=== PATIENT | female | born 1985 | race Caucasian/White ===

== ENCOUNTER 2020-04-22 16:18 | Emergency (ER) | payer OTHER ==
[2020-04-22 16:31] VITALS: RESP 18
[2020-04-22] MEDS ORDERED: ONDANSETRON 4 MG/2 ML VIAL IVP STA (17:02)
[2020-04-22] MEDS ORDERED: CEPHALEXIN 500MG STARTER PACK 4 CAP BTL PO STA (17:02)
[2020-04-22] MEDS ORDERED: SODIUM CHLORIDE 0.9% 1,000 ML IV STA (17:02)
[2020-04-22] MEDS ORDERED: MORPHINE SULFATE 4 MG/ML SYRINGE IV STA (17:02)
[2020-04-22] MEDS ORDERED: FAMOTIDINE 20 MG/2 ML VIAL IV STA (17:02)
[2020-04-22 17:44] LABS: Basophils # (A) 0.1 k/uL (0-0.2); Basophils % (A) 1 %; Eosinophils # (A) 0.2 k/uL (0-0.7); Eosinophils % (A) 2 %; HCT 41.5 % (34.0-46.0); HGB 13.7 gm/dL (11.4-16.0); Lymphocytes # (A) 2.6 k/uL (1.0-4.8); Lymphocytes % (A) 25 %; MCH 28.3 pg (25.0-35.0); MCHC 32.9 g/dL (31.0-37.0); MCV 85.9 fL (80.0-100.0); Mean Platelet Volume 6.7; Monocytes # (A) 0.4 k/uL (0-1.0); Monocytes % (A) 4 %; Neutrophils # (A) 6.9 k/uL (1.3-7.7); Neutrophils % (A) 67 %; Platelet Count 258 k/uL (150-450); RBC 4.84 m/uL (3.80-5.40); RDW 13.6 % (11.5-15.5); WBC 10.3 k/uL (3.8-10.6)
[2020-04-22 17:53] LABS: Appearance,Urine Clear (Clear); Bilirubin,Urine Negative (Negative); Blood,Urine Negative (Negative); Color,Urine Yellow; Glucose,Urine (UA) Negative (Negative); Ketones,Urine Negative (Negative); Leukocyte Esterase,Urine Negative (Negative); Nitrite,Urine Negative (Negative); Protein,Urine Negative (Negative); Specific Gravity,Urine 1.014 (1.001-1.035); Urobilinogen,Urine <2.0 mg/dL (<2.0)
[2020-04-22 17:54] LABS: ALT 33 U/L (4-34); AST 32 U/L (14-36); African American GFR (CKD) >90 (>60 ml/min/1.73 sqM); Albumin 4.5 g/dL (3.5-5.0); Alkaline Phosphatase 69 U/L (38-126); Anion Gap 8 mmol/L; Blood Urea Nitrogen 12 mg/dL (7-17); Calcium 9.7 mg/dL (8.4-10.2); Carbon Dioxide 25 mmol/L (22-30); Chloride 103 mmol/L (98-107); Glucose 81 mg/dL (74-99); Lipase 76 U/L (23-300); Non-African American GFR(CKD) >90 (>60 ml/min/1.73 sqM); Potassium 4.4 mmol/L (3.5-5.1); Sodium 136 mmol/L (137-145); Total Bilirubin 0.4 mg/dL (0.2-1.3); Total Protein 7.7 g/dL (6.3-8.2)
--- NOTE | 2020-04-22 18:02 | ED ---
General Adult HPI - General Chief complaint: Skin/Abscess/Foreign Body Stated complaint: allergic reaction/tattoo ink Time Seen by Provider: 04/22/20 16:30 Source: patient Mode of arrival: ambulatory Limitations: no limitations - History of Present Illness Initial comments: 34-year-old female patient presents to the emergency department today for evaluation of midepigastric pain radiating through to her back. She is also reporting a redness and pain to her left lower leg at the site of a new tattoo. Patient states that she started to have pain to the leg a few days ago. States it has been red and swollen. She states she was taking norco 7.5/325 without relief of pain. States she then started to take ibuprofen. States that after taking the ibuprofen she started to have epigastric pain and was concerned she may have pancreatitis which she has had in the past. She reports occasional nausea without vomiting. States she is able to eat and drink. She denies any shortness of breath or sweats. Patient denies any recent rash, cough, diarrhea, constipation, numbness, tingling, dizziness, weakness, hematuria, dysuria, urinary urgency, urinary frequency, headache, visual changes, or any other complaints. - Related Data Previous Rx's Medication Instructions Recorded Cephalexin [Keflex] 500 mg PO Q6HR #40 cap 04/22/20 Allergies Allergy/AdvReac Type Severity Reaction Status Date / Time Penicillins Allergy Unknown Verified 04/22/20 16:24 Childhood Sulfa (Sulfonamide Allergy Unknown Verified 04/22/20 16:24 Antibiotics) Childhood Review of Systems ROS Statement: Those systems with pertinent positive or pertinent negative responses have been documented in the HPI. ROS Other: All systems not noted in ROS Statement are negative. Past Medical History Past Medical History: Asthma History of Any Multi-Drug Resistant Organisms: None Reported Past Surgical History: Section Past Psychological History: Anxiety, Schizoaffective Disorder Smoking Status: Current every day smoker Past Alcohol Use History: None Reported Past Drug Use History: Marijuana General Exam Limitations: no limitations General appearance: alert, in no apparent distress, other (This is a well- developed, well-nourished adult female patient in no acute distress. Vital signs upon presentation are temperature 98.6F, pulse 110, respirations 18, blood pressure 172/94, pulse ox 100% on room air) Eye exam: Present: normal appearance, PERRL, EOMI. Absent: scleral icterus, conjunctival injection, periorbital swelling ENT exam: Present: normal exam, normal oropharynx, mucous membranes moist Respiratory exam: Present: normal lung sounds bilaterally. Absent: respiratory distress, wheezes, rales, rhonchi, stridor Cardiovascular Exam: Present: regular rate, normal rhythm, normal heart sounds. Absent: systolic murmur, diastolic murmur, rubs, gallop, clicks GI/Abdominal exam: Present: soft, normal bowel sounds. Absent: distended, tenderness, guarding, rebound, rigid, pulsatile mass Extremities exam: Present: normal inspection, full ROM, normal capillary refill, other (Skin to the lower extremities is pink, warm, dry. Cap refills less than 3 seconds. Pedal pulses 2+ and equal bilaterally. There is new tattoo noted to the left medial ankle with surrounding erythema and swelling.). Absent: tenderness, pedal edema, joint swelling, calf tenderness Neurological exam: Present: alert, oriented X3, CN II-XII intact Psychiatric exam: Present: normal affect, normal mood Skin exam: Present: warm, dry, intact, normal color. Absent: rash Course Vital Signs 04/22/20 04/22/20 16:25 18:50 Temperature 98.6 F 98.4 F Pulse Rate 110 H 85 Respiratory 18 18 Rate Blood Pressure 172/94 121/72 O2 Sat by Pulse 100 98 Oximetry EKG Findings - EKG Comments: EKG Findings:: EKG obtained at 1725 shows normal sinus rhythm with a ventricular rate is 77, LA interval 134, QRS duration 88, QT 398, QTC 450. No evidence of ST elevation or depression. Medical Decision Making - Medical Decision Making 34 year old female patient presents to the emergency department today for evaluation of infection to a new tattoo as well as midepigastric abdominal pain radiating through to the back. Physical examination did reveal soft nontender abdomen. There is no pulsatile mass upon palpation. She has good neurovascular status of the lower extremities. Evaluation of the tattooed area does appear to be cellulitis. Labs reviewed and are unremarkable. I did discuss findings and results with her. She is instructed to avoid Motrin if this causes her abdominal pain. She is instructed to follow-up with her primary care physician for recheck in 1-2 days. She is instructed to complete antibiotic prescription and full. Return parameters discussed in detail. She verbalizes understanding and agrees with this plan. - Lab Data Result diagrams: 04/22/20 17:10 04/22/20 17:10 Lab Results 04/22/20 04/22/20 04/22/20 Range/Units 17:10 17:10 17:10 WBC 10.3 (3.8-10.6) k/uL RBC 4.84 (3.80-5.40) m/uL Hgb 13.7 (11.4-16.0) gm/dL Hct 41.5 (34.0-46.0) % MCV 85.9 (80.0-100.0) fL MCH 28.3 (25.0-35.0) pg MCHC 32.9 (31.0-37.0) g/dL RDW 13.6 (11.5-15.5) % Plt Count 258 (150-450) k/uL MPV 6.7 Neutrophils % 67 % Lymphocytes % 25 % Monocytes % 4 % Eosinophils % 2 % Basophils % 1 % Neutrophils # 6.9 (1.3-7.7) k/uL Lymphocytes # 2.6 (1.0-4.8) k/uL Monocytes # 0.4 (0-1.0) k/uL Eosinophils # 0.2 (0-0.7) k/uL Basophils # 0.1 (0-0.2) k/uL Sodium 136 L (137-145) mmol/L Potassium 4.4 (3.5-5.1) mmol/L Chloride 103 (98-107) mmol/L Carbon Dioxide 25 (22-30) mmol/L Anion Gap 8 mmol/L BUN 12 (7-17) mg/dL Creatinine 0.76 (0.52-1.04) mg/dL Est GFR (CKD-EPI)AfAm >90 (>60 ml/min/1.73 sqM) Est GFR (CKD-EPI)NonAf >90 (>60 ml/min/1.73 sqM) Glucose 81 (74-99) mg/dL Calcium 9.7 (8.4-10.2) mg/dL Total Bilirubin 0.4 (0.2-1.3) mg/dL AST 32 (14-36) U/L ALT 33 (4-34) U/L Alkaline Phosphatase 69 (38-126) U/L Troponin I (0.000-0.034) ng/mL Total Protein 7.7 (6.3-8.2) g/dL Albumin 4.5 (3.5-5.0) g/dL Lipase 76 (23-300) U/L Urine Color Yellow Urine Appearance Clear (Clear) Urine pH 6.0 (5.0-8.0) Ur Specific [place] 1.014 (1.001-1.035) Urine Protein Negative (Negative) Urine Glucose (UA) Negative (Negative) Urine Ketones Negative (Negative) Urine Blood Negative (Negative) Urine Nitrite Negative (Negative) Urine Bilirubin Negative (Negative) Urine Urobilinogen <2.0 (<2.0) mg/dL Ur Leukocyte Esterase Negative (Negative) 04/22/20 Range/Units 17:10 WBC (3.8-10.6) k/uL RBC (3.80-5.40) m/uL Hgb (11.4-16.0) gm/dL Hct (34.0-46.0) % MCV (80.0-100.0) fL MCH (25.0-35.0) pg MCHC (31.0-37.0) g/dL RDW (11.5-15.5) % Plt Count (150-450) k/uL MPV Neutrophils % % Lymphocytes % % Monocytes % % Eosinophils % % Basophils % % Neutrophils # (1.3-7.7) k/uL Lymphocytes # (1.0-4.8) k/uL Monocytes # (0-1.0) k/uL Eosinophils # (0-0.7) k/uL Basophils # (0-0.2) k/uL Sodium (137-145) mmol/L Potassium (3.5-5.1) mmol/L Chloride (98-107) mmol/L Carbon Dioxide (22-30) mmol/L Anion Gap mmol/L BUN (7-17) mg/dL Creatinine (0.52-1.04) mg/dL Est GFR (CKD-EPI)AfAm (>60 ml/min/1.73 sqM) Est GFR (CKD-EPI)NonAf (>60 ml/min/1.73 sqM) Glucose (74-99) mg/dL Calcium (8.4-10.2) mg/dL Total Bilirubin (0.2-1.3) mg/dL AST (14-36) U/L ALT (4-34) U/L Alkaline Phosphatase (38-126) U/L Troponin I <0.012 (0.000-0.034) ng/mL Total Protein (6.3-8.2) g/dL Albumin (3.5-5.0) g/dL Lipase (23-300) U/L Urine Color Urine Appearance (Clear) Urine pH (5.0-8.0) Ur Specific [place] (1.001-1.035) Urine Protein (Negative) Urine Glucose (UA) (Negative) Urine Ketones (Negative) Urine Blood (Negative) Urine Nitrite (Negative) Urine Bilirubin (Negative) Urine Urobilinogen (<2.0) mg/dL Ur Leukocyte Esterase (Negative) Disposition Clinical Impression: Cellulitis of left leg, Abdominal pain Disposition: HOME SELF-CARE Condition: Good Instructions (If sedation given, give patient instructions): Cellulitis (ED), Abdominal Pain (ED) Additional Instructions: Take medications as directed. Follow-up through primary care physician for recheck in 1-2 days. Return to the emergency department immediately for any new, worsening, or concerning symptoms. Prescriptions: Cephalexin [Keflex] 500 mg PO Q6HR #40 cap Is patient prescribed a controlled substance at d/c from ED?: No Referrals: Jamaal Beasley MD [Primary Care Provider] - 1-2 days Time of Disposition: 18:30
[2020-04-22] MEDS ORDERED: ACET/COD 300 MG/30 MG STARTER PACK 6 TAB BTL PO STA (18:30)
[2020-04-22 18:53] VITALS: BP 121/72; PULSE 85; TEMP 98.4
== END 2020-04-22 18:54 | disposition home or self-care (01) ==
LOC: EC 16:18
DX: R10.13 Epigastric pain (principal); L03.116 Cellulitis of left lower limb; F17.200 Nicotine dependence, unspecified, uncomplicated; Z88.0 Allergy status to penicillin; Z88.2 Allergy status to sulfonamides
CPT/HCPCS: 36415; 93005; 80053; 83690; 84484; 85025; 81003; 99283; 96374; 96375 ×2; 96361; J2270; J2405

== ENCOUNTER 2020-04-24 23:12 | Observation (INO) | payer OTHER ==
[2020-04-24] MEDS ORDERED: cefTRIAXone IN SWFI 1,000 MG/10 ML SYRINGE IVP STA (23:32)
[2020-04-24] MEDS ORDERED: VANCOMYCIN IV PER PHARMACY 1 EACH MISC MISCELLANE PRN (23:32)
[2020-04-24] MEDS ORDERED: SODIUM CHLORIDE 0.9% 1,000 ML IV ONE (23:44)
[2020-04-24] MEDS: SODIUM CHLORIDE 0.9% 1,000 ML IV SCH (23:58)
[2020-04-25] MEDS ORDERED: MORPHINE SULFATE 4 MG/ML SYRINGE IV STA
[2020-04-25] MEDS ORDERED: VANCOMYCIN 2,000 MG in SODIUM CHLORIDE 0.9% 500 ML 500 ML IVPB ONE ×2
[2020-04-25] MEDS ORDERED: ONDANSETRON 4 MG/2 ML VIAL IVP STA (00:14)
[2020-04-25 00:22] LABS: Basophils # (A) 0.1 k/uL (0-0.2); Basophils % (A) 1 %; Eosinophils # (A) 0.6 k/uL (0-0.7); Eosinophils % (A) 6 %; HCT 39.2 % (34.0-46.0); HGB 13.2 gm/dL (11.4-16.0); Lymphocytes # (A) 3.4 k/uL (1.0-4.8); Lymphocytes % (A) 35 %; MCH 28.6 pg (25.0-35.0); MCHC 33.7 g/dL (31.0-37.0); MCV 85.1 fL (80.0-100.0); Mean Platelet Volume 6.8; Monocytes # (A) 0.4 k/uL (0-1.0); Monocytes % (A) 4 %; Neutrophils # (A) 5.1 k/uL (1.3-7.7); Neutrophils % (A) 53 %; Platelet Count 249 k/uL (150-450); RBC 4.61 m/uL (3.80-5.40); RDW 13.7 % (11.5-15.5); WBC 9.7 k/uL (3.8-10.6)
[2020-04-25 00:26] LABS: Appearance,Urine Clear (Clear); Bilirubin,Urine Negative (Negative); Blood,Urine Negative (Negative); Color,Urine Yellow; Glucose,Urine (UA) Negative (Negative); Ketones,Urine Negative (Negative); Leukocyte Esterase,Urine Negative (Negative); Nitrite,Urine Negative (Negative); Protein,Urine Negative (Negative); Specific Gravity,Urine 1.014 (1.001-1.035); Urobilinogen,Urine <2.0 mg/dL (<2.0)
--- NOTE | 2020-04-25 00:26 | XR ---
EXAM: XR Left Tibia and Fibula, 2 Views CLINICAL HISTORY: ITS.REASON XR Reason: infection left lower extremity TECHNIQUE: Frontal and lateral views of the left tibia and fibula. COMPARISON: No relevant prior studies available. FINDINGS: Bones/joints: No acute fracture. No dislocation. Soft tissues: No gas/air. No radiopaque foreign body. IMPRESSION: No acute osseous abnormalities.
[2020-04-25 00:42] LABS: ALT 27 U/L (4-34); AST 23 U/L (14-36); African American GFR (CKD) >90 (>60 ml/min/1.73 sqM); Albumin 4.1 g/dL (3.5-5.0); Alkaline Phosphatase 56 U/L (38-126); Anion Gap 6 mmol/L; Blood Urea Nitrogen 15 mg/dL (7-17); Calcium 9.3 mg/dL (8.4-10.2); Carbon Dioxide 26 mmol/L (22-30); Chloride 104 mmol/L (98-107); Glucose 108 mg/dL (74-99); Non-African American GFR(CKD) 84 (>60 ml/min/1.73 sqM); Potassium 4.5 mmol/L (3.5-5.1); Sodium 136 mmol/L (137-145); Total Bilirubin 0.2 mg/dL (0.2-1.3); Total Protein 7.2 g/dL (6.3-8.2)
[2020-04-25] MEDS ORDERED: ACETAMINOPHEN TAB 325 MG TAB PO PRN (01:07)
[2020-04-25] MEDS ORDERED: IBUPROFEN 400 MG TAB PO PRN (01:07)
[2020-04-25] MEDS ORDERED: NALOXONE 0.4 MG/ML 1 ML VIAL IV PRN (01:07)
--- NOTE | 2020-04-25 01:09 | ED ---
General Adult HPI - General Chief complaint: Skin/Abscess/Foreign Body Stated complaint: left lower leg pain Time Seen by Provider: 04/24/20 23:19 Source: patient, RN notes reviewed, old records reviewed Mode of arrival: ambulatory Limitations: no limitations - History of Present Illness Initial comments: 34-year-old female patient to ED for evaluation of exudates to left lateral ankle. Patient port that she had the tattoo done about 10 days ago. It is a coverup tattoo. Patient reports that for the last 5 days or soshe has been having pain. She reports that she began developing redness about 3 days ago. She was seen in the emergency department put on Keflex 500 mg 4 times a day she is taken 2 full days worth of doses. Today her pain again got worse and then she began experiencing a significant amount of purulent drainage. She denies any other complaints. Systemic: Pt denies fatigue. Pt denies weakness, night sweats, weight loss. Neuro: Pt denies headache, visual disturbances, syncope or pre-syncope. HEENT: Pt denies ocular discharge or irritation, otalgia, rhinorrhea, pharyngitis or notable lymphadenopathy. Cardiopulmonary: Pt denies chest pain, SOB, heart palpitations, dyspnea on exertion. Abdominal/GI: Pt denies abdominal pain, n/v/d. : Pt denies dysuria, burning w/ urination, frequency/urgency. Denies new onset urinary or bowel incontinence. MSK: Pt denies myalgia, loss of strength or function in extremities. Neuro: Pt denies new onset weakness, paresthesias. - Related Data Previous Rx's Medication Instructions Recorded Cephalexin [Keflex] 500 mg PO Q6HR #40 cap 04/22/20 Allergies Allergy/AdvReac Type Severity Reaction Status Date / Time Penicillins Allergy Unknown Verified 04/24/20 23:18 Childhood Sulfa (Sulfonamide Allergy Unknown Verified 04/24/20 23:18 Antibiotics) Childhood Review of Systems ROS Statement: Those systems with pertinent positive or pertinent negative responses have been documented in the HPI. ROS Other: All systems not noted in ROS Statement are negative. Past Medical History Past Medical History: Asthma History of Any Multi-Drug Resistant Organisms: None Reported Past Surgical History: Section Past Psychological History: Anxiety, Schizoaffective Disorder Smoking Status: Current every day smoker Past Alcohol Use History: None Reported Past Drug Use History: Marijuana General Exam - General Exam Comments Initial Comments: Constitutional: NAD, AOX3, Pt has pleasant affect. HEENT: NC/AT, trachea midline, neck supple, no lymphadenopathy. External ears appear normal, without discharge. Mucous membranes moist. Eyes PERRLA, EOM intact. There is no scleral icterus. No pallor noted. Cardiopulmonary: RRR, no murmurs, rubs or gallops, no JVD noted. Lungs CTAB in anterior and posterior henning. No peripheral edema. Abdominal exam: Abdomen soft and non-distended. Abdomen non-tender to palpation in all 4 quadrants. Neuro: CN II-XII grossly intact. No nuchal rigidity. MSK: *Tattoo on the left lateral ankle approximately 3 x 3". Surrounding erythema. Purulent drainage noted in the center of the*. This was cultured. No current fluctuance. No crepitus. No posterior calf tenderness bilaterally, homans sign negative bilaterally. Posterior tibialis and radial pulse +2 bilaterally. Sensation intact in upper and lower extremities. Limitations: no limitations Course Vital Signs 04/24/20 23:14 Temperature 100.0 F H Pulse Rate 101 H Respiratory 20 Rate Blood Pressure 142/82 O2 Sat by Pulse 96 Oximetry Medical Decision Making - Medical Decision Making 34-year-old female patient to ED for infected tattoo site. Patient has failed outpatient treatment. Will be admitted for IV antibiotics. Case discussed with Dr. [place]. - Lab Data Result diagrams: 04/24/20 23:59 04/24/20 23:59 Lab Results 04/24/20 04/24/20 04/24/20 Range/Units 23:59 23:59 23:59 WBC 9.7 (3.8-10.6) k/uL RBC 4.61 (3.80-5.40) m/uL Hgb 13.2 (11.4-16.0) gm/dL Hct 39.2 (34.0-46.0) % MCV 85.1 (80.0-100.0) fL MCH 28.6 (25.0-35.0) pg MCHC 33.7 (31.0-37.0) g/dL RDW 13.7 (11.5-15.5) % Plt Count 249 (150-450) k/uL MPV 6.8 Neutrophils % 53 % Lymphocytes % 35 % Monocytes % 4 % Eosinophils % 6 % Basophils % 1 % Neutrophils # 5.1 (1.3-7.7) k/uL Lymphocytes # 3.4 (1.0-4.8) k/uL Monocytes # 0.4 (0-1.0) k/uL Eosinophils # 0.6 (0-0.7) k/uL Basophils # 0.1 (0-0.2) k/uL Sodium (137-145) mmol/L Potassium (3.5-5.1) mmol/L Chloride (98-107) mmol/L Carbon Dioxide (22-30) mmol/L Anion Gap mmol/L BUN (7-17) mg/dL Creatinine (0.52-1.04) mg/dL Est GFR (CKD-EPI)AfAm (>60 ml/min/1.73 sqM) Est GFR (CKD-EPI)NonAf (>60 ml/min/1.73 sqM) Glucose (74-99) mg/dL Plasma Lactic Acid [place] (0.7-2.0) mmol/L Calcium (8.4-10.2) mg/dL Total Bilirubin (0.2-1.3) mg/dL AST (14-36) U/L ALT (4-34) U/L Alkaline Phosphatase (38-126) U/L Total Protein (6.3-8.2) g/dL Albumin (3.5-5.0) g/dL Urine Color Yellow Urine Appearance Clear (Clear) Urine pH 6.0 (5.0-8.0) Ur Specific [place] 1.014 (1.001-1.035) Urine Protein Negative (Negative) Urine Glucose (UA) Negative (Negative) Urine Ketones Negative (Negative) Urine Blood Negative (Negative) Urine Nitrite Negative (Negative) Urine Bilirubin Negative (Negative) Urine Urobilinogen <2.0 (<2.0) mg/dL Ur Leukocyte Esterase Negative (Negative) Urine HCG, Qual Not Detected (Not Detectd) 04/24/20 04/24/20 Range/Units 23:59 23:59 WBC (3.8-10.6) k/uL RBC (3.80-5.40) m/uL Hgb (11.4-16.0) gm/dL Hct (34.0-46.0) % MCV (80.0-100.0) fL MCH (25.0-35.0) pg MCHC (31.0-37.0) g/dL RDW (11.5-15.5) % Plt Count (150-450) k/uL MPV Neutrophils % % Lymphocytes % % Monocytes % % Eosinophils % % Basophils % % Neutrophils # (1.3-7.7) k/uL Lymphocytes # (1.0-4.8) k/uL Monocytes # (0-1.0) k/uL Eosinophils # (0-0.7) k/uL Basophils # (0-0.2) k/uL Sodium 136 L (137-145) mmol/L Potassium 4.5 (3.5-5.1) mmol/L Chloride 104 (98-107) mmol/L Carbon Dioxide 26 (22-30) mmol/L Anion Gap 6 mmol/L BUN 15 (7-17) mg/dL Creatinine 0.90 (0.52-1.04) mg/dL Est GFR (CKD-EPI)AfAm >90 (>60 ml/min/1.73 sqM) Est GFR (CKD-EPI)NonAf 84 (>60 ml/min/1.73 sqM) Glucose 108 H (74-99) mg/dL Plasma Lactic Acid [place]y 1.6 (0.7-2.0) mmol/L Calcium 9.3 (8.4-10.2) mg/dL Total Bilirubin 0.2 (0.2-1.3) mg/dL AST 23 (14-36) U/L ALT 27 (4-34) U/L Alkaline Phosphatase 56 (38-126) U/L Total Protein 7.2 (6.3-8.2) g/dL Albumin 4.1 (3.5-5.0) g/dL Urine Color Urine Appearance (Clear) Urine pH (5.0-8.0) Ur Specific [place] (1.001-1.035) Urine Protein (Negative) Urine Glucose (UA) (Negative) Urine Ketones (Negative) Urine Blood (Negative) Urine Nitrite (Negative) Urine Bilirubin (Negative) Urine Urobilinogen (<2.0) mg/dL Ur Leukocyte Esterase (Negative) Urine HCG, Qual (Not Detectd) Disposition Clinical Impression: Skin infection, Cellulitis Disposition: ADMITTED IP TO THIS HOSP Condition: Serious Is patient prescribed a controlled substance at d/c from ED?: No Referrals: Jamaal Beasley MD [Primary Care Provider] - 1-2 days
[2020-04-25] MEDS: SODIUM CHLORIDE 0.9% 1,000 ML IV SCH ×3 (09:39→22:08)
[2020-04-25] MEDS: VANCOMYCIN 1,750 MG in SODIUM CHLORIDE 0.9% 500 ML 500 ML IVPB SCH (11:28)
[2020-04-25] MEDS: HYDROcodone/APAP 7.5-325MG 1 EACH TAB PO PRN ×3 (11:35→22:09)
[2020-04-25] MEDS: ONDANSETRON 4 MG/2 ML VIAL IVP PRN (13:20)
[2020-04-25] MEDS: ALPRAZolam 0.25 MG TAB PO PRN (13:25)
[2020-04-26] MEDS: ONDANSETRON 4 MG/2 ML VIAL IVP PRN (00:30)
[2020-04-26] MEDS: VANCOMYCIN 1,750 MG in SODIUM CHLORIDE 0.9% 500 ML 500 ML IVPB SCH ×2 (00:30→12:23)
[2020-04-26] MEDS: ALPRAZolam 0.25 MG TAB PO PRN ×2 (00:44→21:24)
[2020-04-26] MEDS: HYDROcodone/APAP 7.5-325MG 1 EACH TAB PO PRN ×3 (06:08→18:22)
[2020-04-26] MEDS: SODIUM CHLORIDE 0.9% 1,000 ML IV SCH ×2 (06:09→21:17)
[2020-04-26 10:47] LABS: African American GFR (CKD) >90 (>60 ml/min/1.73 sqM); Non-African American GFR(CKD) >90 (>60 ml/min/1.73 sqM)
--- NOTE | 2020-04-26 19:44 | P.HPIM ---
History of Present Illness H&P Date: 04/25/20 Chief Complaint: Skin abscess/left leg pain 34-year-old female patient to ED for evaluation of exudates to left lateral ankle. Patient port that she had the tattoo done about 10 days ago. It is a coverup tattoo. Patient reports that for the last 5 days or soshe has been having pain. She reports that she began developing redness about 3 days ago. She was seen in the emergency department put on Keflex 500 mg 4 times a day she is taken 2 full days worth of doses. Today her pain again got worse and then she began experiencing a significant amount of purulent drainage. She denies any other complaints. Review of Systems REVIEW OF SYSTEMS: CONSTITUTIONAL: No fever, no malaise, no fatigue. HEENT: No recent visual problems or hearing problems. Denied any sore throat. CARDIOVASCULAR: No chest pain, orthopnea, PND, no palpitations, no syncope. PULMONARY: No shortness of breath, no cough, no hemoptysis. GASTROINTESTINAL: No diarrhea, no nausea, no vomiting, no abdominal pain. NEUROLOGICAL: No headaches, no weakness, no numbness. HEMATOLOGICAL: Denies any bleeding or petechiae. GENITOURINARY: Denies any burning micturition, frequency, or urgency. MUSCULOSKELETAL/RHEUMATOLOGICAL: Denies any joint pain, swelling, or any muscle pain. ENDOCRINE: Denies any polyuria or polydipsia. The rest of the 14-point review of systems is negative. Past Medical History Past Medical History: Asthma History of Any Multi-Drug Resistant Organisms: None Reported Past Surgical History: Section Additional Past Surgical History / Comment(s): pancreatitis Past Anesthesia/Blood Transfusion Reactions: No Reported Reaction Past Psychological History: Anxiety, Schizoaffective Disorder Smoking Status: Current every day smoker Past Alcohol Use History: None Reported Past Drug Use History: Marijuana Medications and Allergies Home Medications Medication Instructions Recorded Confirmed Type Cephalexin [Keflex] 500 mg PO Q6HR #40 cap 04/22/20 04/25/20 Rx ALPRAZolam [Xanax] 0.25 mg PO BID PRN 04/25/20 04/25/20 History FLUoxetine HCL 40 mg PO DAILY 04/25/20 04/25/20 History HYDROcodone/APAP 7.5-325MG [[place] 1 tab PO QID PRN 04/25/20 04/25/20 History 7.5-325] Ibuprofen [Motrin Ib] 200 mg PO Q6H PRN 04/25/20 04/25/20 History Norgestimate-Ethinyl Estradiol 1 tab PO HS 04/25/20 04/25/20 History [Sprintec 28 Day Tablet] Allergies Allergy/AdvReac Type Severity Reaction Status Date / Time Penicillins Allergy Unknown Verified 04/25/20 07:30 Childhood Sulfa (Sulfonamide Allergy Unknown Verified 04/25/20 07:30 Antibiotics) Childhood Physical Exam Vitals: Vital Signs Temp Pulse Pulse Resp BP BP Pulse Ox 04/25/20 09:00 97.1 F L 92 18 148/76 04/25/20 03:00 98.1 F 75 16 140/71 98 04/25/20 02:00 98.0 F 71 16 130/78 95 04/24/20 23:14 100.0 F H 101 H 20 142/82 96 Intake and Output 04/24/20 04/25/20 04/25/20 22:59 06:59 14:59 Other: Voiding Method Toilet Toilet # Voids 1 Weight 122.47 kg Constitutional: NAD, AOX3, Pt has pleasant affect. HEENT: NC/AT, trachea midline, neck supple, no lymphadenopathy. External ears appear normal, without discharge. Mucous membranes moist. Eyes PERRLA, EOM intact. There is no scleral icterus. No pallor noted. Cardiopulmonary: RRR, no murmurs, rubs or gallops, no JVD noted. Lungs CTAB in anterior and posterior henning. No peripheral edema. Abdominal exam: Abdomen soft and non-distended. Abdomen non-tender to palpation in all 4 quadrants. Neuro: CN II-XII grossly intact. No nuchal rigidity. MSK: *Tattoo on the left lateral ankle approximately 3 x 3". Surrounding erythema. Purulent drainage noted in the center of the*. This was cultured. No current fluctuance. No crepitus. No posterior calf tenderness bilaterally, homans sign negative bilaterally. Posterior tibialis and radial pulse +2 bilaterally. Sensation intact in upper and lower extremities. Results CBC & Chem 7: 04/24/20 23:59 04/26/20 09:53 Labs: Abnormal Lab Results - Last 24 Hours (Table) 04/24/20 Range/Units 23:59 Sodium 136 L (137-145) mmol/L Glucose 108 H (74-99) mg/dL Microbiology - Last 24 Hours (Table) 04/24/20 23:52 Wound Culture - Preliminary Leg - Left Thrombosis Risk Factor Assmnt - Choose All That Apply Each Factor Represents 1 point: Obesity (BMI >25) Thrombosis Risk Factor Assessment Total Risk Factor Score: 1 Thrombosis Risk Factor Assessment Level: Low Risk Assessment and Plan Assessment: 1. Infection/abscess tattoo site; patient is started on IV ceftriaxone and vancomycin in ED; we will continue with both antibiotics; blood cultures and wound culture is obtained; we will consult ID; further recommendations after culture results are available 2. Cellulitis left lower extremity; secondary to infected tattoo site; continue with antibiotics as discussed above; further recommendations per ID 3. Morbid obesity; counseling done on need for weight reduction DVT prophylaxis; SCDs/ambulation CODE STATUS; full code
[2020-04-27] MEDS: VANCOMYCIN 1,750 MG in SODIUM CHLORIDE 0.9% 500 ML 500 ML IVPB SCH ×2 (00:34→11:15)
[2020-04-27] MEDS: HYDROcodone/APAP 7.5-325MG 1 EACH TAB PO PRN ×3 (00:44→14:27)
[2020-04-27 07:33] LABS: African American GFR (CKD) >90 (>60 ml/min/1.73 sqM); Anion Gap 3 mmol/L; Blood Urea Nitrogen 5 mg/dL (7-17); Calcium 8.5 mg/dL (8.4-10.2); Carbon Dioxide 28 mmol/L (22-30); Chloride 106 mmol/L (98-107); Glucose 81 mg/dL (74-99); Non-African American GFR(CKD) >90 (>60 ml/min/1.73 sqM); Potassium 4.1 mmol/L (3.5-5.1); Sodium 137 mmol/L (137-145)
[2020-04-27 07:58] LABS: Basophils # (A) 0.1 k/uL (0-0.2); Basophils % (A) 1 %; Eosinophils # (A) 0.4 k/uL (0-0.7); Eosinophils % (A) 5 %; HCT 35.3 % (34.0-46.0); HGB 11.6 gm/dL (11.4-16.0); Lymphocytes # (A) 2.2 k/uL (1.0-4.8); Lymphocytes % (A) 27 %; MCH 28.3 pg (25.0-35.0); MCHC 32.7 g/dL (31.0-37.0); MCV 86.7 fL (80.0-100.0); Mean Platelet Volume 7.5; Monocytes # (A) 0.4 k/uL (0-1.0); Monocytes % (A) 5 %; Neutrophils # (A) 4.8 k/uL (1.3-7.7); Neutrophils % (A) 61 %; Platelet Count 192 k/uL (150-450); RBC 4.08 m/uL (3.80-5.40); RDW 13.8 % (11.5-15.5)
[2020-04-27 08:19] VITALS: PULSE 66
[2020-04-27] MEDS ORDERED: VANCOMYCIN TROUGH DUE 1 EACH MISC MISCELLANE ONE (11:00)
--- NOTE | 2020-04-27 17:01 | P.PN ---
Subjective Progress Note Date: 04/26/20 Principal diagnosis: Skin abscess/left leg pain 34-year-old female patient to ED for evaluation of exudates to left lateral ankle. Patient port that she had the tattoo done about 10 days ago. It is a coverup tattoo. Patient reports that for the last 5 days or soshe has been having pain. She reports that she began developing redness about 3 days ago. She was seen in the emergency department put on Keflex 500 mg 4 times a day she is taken 2 full days worth of doses. Today her pain again got worse and then she began experiencing a significant amount of purulent drainage. She denies any other complaints. 04/26/2020 Patient is seen and evaluated in room at bedside; reports improvement in pain and amount of discharge from tattoo site Vital signs remained stable; labs are stable Patient remains on IV antibiotics; wound culture is pending Await ID recommendations on IV antibiotics and possible transition to oral Objective - Vital Signs Vital signs: Vital Signs Temp 97.7 F 04/26/20 15:00 Pulse 60 04/26/20 15:00 Resp 18 04/26/20 15:00 BP 153/63 04/26/20 15:00 Pulse Ox 98 04/26/20 15:00 Intake & Output 04/26/20 04/26/20 04/27/20 06:59 18:59 06:59 Intake Total 1780 Balance 1780 Intake: Intake, IV Titration 1540 Amount Sodium Chloride 0.9% 1, 1040 000 ml @ 130 mls/hr IV . Q7H42M QUYEN Rx#:[id number] Vancomycin 1,750 mg In 500 Sodium Chloride 0.9% 500 ml 500 ml @ 167 mls/hr IVPB Q12H QUYEN Rx#: [id number] Oral 240 Other: Voiding Method Toilet Toilet # Voids 1 4 - Exam PHYSICAL EXAMINATION: GENERAL: The patient is alert and oriented x3, not in any acute distress. Well developed, well nourished. HEENT: Pupils are round and equally reacting to light. EOMI. No scleral icterus. No conjunctival pallor. Normocephalic, atraumatic. No pharyngeal erythema. No thyromegaly. CARDIOVASCULAR: S1 and S2 present. No murmurs, rubs, or gallops. PULMONARY: Chest is clear to auscultation, no wheezing or crackles. ABDOMEN: Soft, nontender, nondistended, normoactive bowel sounds. No palpable organomegaly. MUSCULOSKELETAL: No joint swelling or deformity. EXTREMITIES: No cyanosis, clubbing, or pedal edema. NEUROLOGICAL: Gross neurological examination did not reveal any focal deficits. SKIN: No rashes. - Labs CBC & Chem 7: 04/27/20 06:29 04/27/20 06:29 Labs: Microbiology - Last 24 Hours (Table) 04/24/20 23:52 Gram Stain - Preliminary Leg - Left Wound Culture - Preliminary 04/24/20 23:59 Blood Culture - Preliminary Blood No Growth after 24 hours Assessment and Plan Assessment: 1. Infection/abscess tattoo site; patient is started on IV ceftriaxone and vancomycin in ED; we will continue with both antibiotics; blood cultures and wound culture is obtained; we will consult ID; further recommendations after c ulture results are available 2. Cellulitis left lower extremity; secondary to infected tattoo site; continue with antibiotics as discussed above; further recommendations per ID 3. Morbid obesity; counseling done on need for weight reduction DVT prophylaxis; SCDs/ambulation CODE STATUS; full code
[2020-04-27 18:07] VITALS: BP 125/67; RESP 18; TEMP 98.5
--- NOTE | 2020-04-28 03:47 | CONS ---
CONSULTATION DATE OF SERVICE: 04/27/2020 REASON FOR CONSULTATION: Left leg cellulitis with infected tattoo. HISTORY OF PRESENT ILLNESS: The patient is a 34-year-old female who is status post new tattoo about 2 weeks ago on the left lateral ankle area. The patient mentioned a few days later she noticed the area becoming swollen, red and painful. The patient described the pain to be throbbing almost 10 out of 10 in severity. He did have some purulent drainage. The patient was evaluated in the ER a few days ago where the patient has been started on oral Keflex four times a day for which the patient has taken 2 days worth of treatment. However, the patient did have persistent pain, swelling and redness that prompted her to come to the hospital 3 days ago on 04/24/2020. The patient was evaluated by the ER physician. On arrival to the ER, the patient did have a fever of 100 degrees Fahrenheit. The patient did have a normal white count. Local culture has been obtained which are currently negative. Blood culture was obtained, was negative. X- rays were negative for any bony changes. The patient has been treated with vancomycin and Rocephin. Infectious Disease was consulted last evening for further management of antibiotic therapy. As of this afternoon, the patient is afebrile. She is feeling much better. Left leg pain, swelling and redness and discomfort has much improved. REVIEW OF SYSTEMS: Positive points have been mentioned in HPI. Rest of the systems are negative. PAST MEDICAL HISTORY: Asthma and pancreatitis, also history of anxiety. She has disorder. PAST SURGICAL HISTORY: . SOCIAL HISTORY: Currently a smoker. Does admit to marijuana use. FAMILY HISTORY: No pertinent findings noticed. ALLERGIES: PENICILLIN and SULFA tolerated Keflex without any problem. MEDICATIONS: Medications include the patient is currently on vancomycin, pharmacy to dose. She is on Zofran, Narcan, Motrin, Rocephin, Xanax, [place] and Tylenol. PHYSICAL EXAMINATION: Blood pressure 145/84, pulse of 66, temperature is 97.3. She is 99% on room air. General description is a middle-aged female up in the bed in no distress. HEENT EXAMINATION: No pallor or scleral icterus. Oral mucous membrane moist. NECK: Trachea central. No thyromegaly. LUNGS: Unlabored breathing, clear to auscultation with crackles. HEART: S1, S2. Regular rate and rhythm. ABDOMEN: Soft, no tenderness. Left leg slight swelling and redness seemed to have improved. There was no swelling or redness or drainage noticed. NEUROLOGICAL: The patient is awake, alert, oriented x3. Mood and affect normal. LABS: Hemoglobin 11.6, white count 8.0. Creatinine 0.72. Vancomycin trough was low. Culture negative. Blood culture negative. DIAGNOSTIC IMPRESSION AND PLAN: Patient with acute left lower extremity cellulitis with infected tattoo failing outpatient oral Keflex. However, she did well on vancomycin. Patient's vancomycin trough was low and culture has been negative for resistant pathogen. The patient is feeling better and wants to go home. PLAN: Would recommend doxycycline 100 mg twice a day for 10 days. Prescription has been sent to the pharmacy and close outpatient followup. MICKI / LASHONDA: [id number] /
--- NOTE | 2020-05-12 00:53 | P.DS ---
Providers Date of admission: 04/26/20 14:25 Expected date of discharge: 04/27/20 Attending physician: Meghan Lay Consults: 04/26/20 19:02 Consult Physician Routine Consulting Provider: Clemente Monae Consult Reason/Comments: infected tattoo Do you want consulting provider notified?: Yes Primary care physician: [facility] Hospital Course: 34-year-old female patient to ED for evaluation of exudates to left lateral ankle. Patient port that she had the tattoo done about 10 days ago. It is a coverup tattoo. Patient reports that for the last 5 days or soshe has been having pain. She reports that she began developing redness about 3 days ago. She was seen in the emergency department put on Keflex 500 mg 4 times a day she is taken 2 full days worth of doses. Today her pain again got worse and then she began experiencing a significant amount of purulent drainage. She denies any other complaints. 04/26/2020 Patient is seen and evaluated in room at bedside; reports improvement in pain and amount of discharge from tattoo site Vital signs remained stable; labs are stable Patient remains on IV antibiotics; wound culture is pending Await ID recommendations on IV antibiotics and possible transition to oral Patient Condition at Discharge: Serious Plan - Discharge Summary Discharge Rx Participant: No New Discharge Prescriptions: New Doxycycline [Vibramycin] 100 mg PO BID 10 Days #20 capsule Continue Norgestimate-Ethinyl Estradiol [Sprintec 28 Day Tablet] 1 tab PO HS Ibuprofen [Motrin Ib] 200 mg PO Q6H PRN PRN Reason: Pain HYDROcodone/APAP 7.5-325MG [[place] 7.5-325] 1 tab PO QID PRN PRN Reason: Pain FLUoxetine HCL 40 mg PO DAILY ALPRAZolam [Xanax] 0.25 mg PO BID PRN PRN Reason: Anxiety Discontinued Cephalexin [Keflex] 500 mg PO Q6HR #40 cap Discharge Medication List ALPRAZolam [Xanax] 0.25 mg PO BID PRN 04/25/20 [History] FLUoxetine HCL 40 mg PO DAILY 04/25/20 [History] HYDROcodone/APAP 7.5-325MG [[place] 7.5-325] 1 tab PO QID PRN 04/25/20 [History] Ibuprofen [Motrin Ib] 200 mg PO Q6H PRN 04/25/20 [History] Norgestimate-Ethinyl Estradiol [Sprintec 28 Day Tablet] 1 tab PO HS 04/25/20 [History] Doxycycline [Vibramycin] 100 mg PO BID 10 Days #20 capsule 04/27/20 [Rx] Follow up Appointment(s)/Referral(s): Jamaal Beasley MD [Primary Care Provider] - 1-2 days (please call for follow up ap pointment) Patient Instructions/Handouts: Cellulitis (DC) Discharge Disposition: HOME SELF-CARE
== END 2020-04-27 18:10 | disposition home or self-care (01) ==
LOC: EC 23:12 → 1SOBS 04-25 02:39 → INTOOBSV 04-25 02:39 → OBSVTOIN 04-25 02:39 → 1SOBS 04-25 14:25 → INTOOBSV 04-25 14:25 → UNDOADMIN 04-26 02:39 → OBSVTOIN 04-26 14:25 → INTOOBSV 04-26 14:25 → UNDODISIN 04-27 18:10 → UNDODISOB 04-27 18:10
PROVIDERS: ADMIT Hospitalist; ATTEND Hospitalist
DX: L02.416 Cutaneous abscess of left lower limb (principal); L03.116 Cellulitis of left lower limb; L81.8 Other specified disorders of pigmentation; E66.01 Morbid (severe) obesity due to excess calories; Z68.41 Body mass index [BMI] 40.0-44.9, adult; F25.9 Schizoaffective disorder, unspecified; J45.909 Unspecified asthma, uncomplicated; F41.9 Anxiety disorder, unspecified; F12.90 Cannabis use, unspecified, uncomplicated; F17.200 Nicotine dependence, unspecified, uncomplicated; Z79.3 Long term (current) use of hormonal contraceptives; Z79.1 Long term (current) use of non-steroidal anti-inflammatories (NSAID); Z79.891 Long term (current) use of opiate analgesic; Z79.899 Other long term (current) drug therapy; Z88.0 Allergy status to penicillin; Z88.2 Allergy status to sulfonamides; Z87.19 Personal history of other diseases of the digestive system; Z98.891 History of uterine scar from previous surgery
CPT/HCPCS: 96361 ×2; 96366 ×4; 96367; 96376 ×3; 96365; 96375; 99285; 36415; 80053; 80048; 82565; 83605; 85025 ×2; 80202; 81003; 81025; 87040; 87070; 87205; 84145; 73590; G0378 ×3; J3370 ×3; J2270; J2405 ×2; J0696 ×2

== ENCOUNTER 2021-06-21 14:46 | Emergency (ER) | payer OTHER ==
[2021-06-21 14:52] VITALS: TEMP 97.9
[2021-06-21 15:08] VITALS: RESP 18
[2021-06-21 15:20] LABS: Appearance,Urine Clear (Clear); Bilirubin,Urine Negative (Negative); Blood,Urine Negative (Negative); Color,Urine Light Yellow; Glucose,Urine (UA) Negative (Negative); Ketones,Urine Negative (Negative); Leukocyte Esterase,Urine Negative (Negative); Nitrite,Urine Negative (Negative); Protein,Urine Negative (Negative); Specific Gravity,Urine 1.008 (1.001-1.035); Urobilinogen,Urine <2.0 mg/dL (<2.0)
[2021-06-21] MEDS ORDERED: HYDROmorphone 0.5 MG/0.5 ML SYRINGE IVP STA (15:37)
[2021-06-21] MEDS ORDERED: ONDANSETRON 4 MG/2 ML VIAL IVP STA (15:37)
[2021-06-21] MEDS ORDERED: SODIUM CHLORIDE 0.9% 1,000 ML IV STA (15:37)
--- NOTE | 2021-06-21 15:45 | ED ---
General Adult HPI - General Chief complaint: Abdominal Pain Stated complaint: Abd Pain Time Seen by Provider: 06/21/21 15:16 Source: patient, RN notes reviewed Mode of arrival: ambulatory Limitations: no limitations - History of Present Illness Initial comments: 36-year-old female presents to the emergency Department with complaints of left upper quadrant abdominal pain accompanied by nausea and vomiting that have been ongoing for the past 8-12 months. Patient states she has a history of severe anxiety and agoraphobia therefore rarely leaves her house and has not had these symptoms evaluated. Reports vomiting with most oral intake, though states she is able to tolerate coffee. Complains of constant nausea. Patient states she does have a history of pancreatitis and describes this discomfort as similar in nature. Denies fever, chills, chest pain, difficulty breathing, shortness of breath, constipation, diarrhea, dysuria, or hematuria. - Related Data Home Medications Medication Instructions Recorded Confirmed ALPRAZolam [Xanax] 0.25 mg PO BID PRN 04/25/20 04/25/20 FLUoxetine HCL 40 mg PO DAILY 04/25/20 04/25/20 HYDROcodone/APAP 7.5-325MG [[place] 1 tab PO QID PRN 04/25/20 04/25/20 7.5-325] Ibuprofen [Motrin Ib] 200 mg PO Q6H PRN 04/25/20 04/25/20 Norgestimate-Ethinyl Estradiol 1 tab PO HS 04/25/20 04/25/20 [Sprintec 28 Day Tablet] Previous Rx's Medication Instructions Recorded Doxycycline [Vibramycin] 100 mg PO BID 10 Days #20 capsule 04/27/20 Ondansetron Odt [Zofran Odt] 4 mg PO Q8HR PRN #10 tab 06/21/21 Allergies Allergy/AdvReac Type Severity Reaction Status Date / Time Penicillins Allergy Unknown Verified 06/21/21 14:48 Childhood Sulfa (Sulfonamide Allergy Unknown Verified 06/21/21 14:48 Antibiotics) Childhood Review of Systems ROS Statement: Those systems with pertinent positive or pertinent negative responses have been documented in the HPI. ROS Other: All systems not noted in ROS Statement are negative. Past Medical History Past Medical History: Asthma Additional Past Medical History / Comment(s): pancreatitis, borderline personality disorder. History of Any Multi-Drug Resistant Organisms: None Reported Past Surgical History: Section, Cholecystectomy Additional Past Surgical History / Comment(s): pancreatitis Past Anesthesia/Blood Transfusion Reactions: No Reported Reaction Past Psychological History: Anxiety, PTSD, Schizoaffective Disorder Smoking Status: Current every day smoker Past Alcohol Use History: None Reported Past Drug Use History: Marijuana General Exam Limitations: no limitations (Well-developed, well-nourished female in no acute distress. Patient is very tearful and anxious upon arrival. Initial temperature 97.9, pulse 117, respirations 20, blood pressure 153/84, pulse ox 97% on room air.) General appearance: alert, in no apparent distress, anxious ENT exam: Present: normal exam, normal oropharynx, mucous membranes moist Respiratory exam: Present: normal lung sounds bilaterally. Absent: respiratory distress, wheezes, rales, rhonchi, stridor Cardiovascular Exam: Present: regular rate, normal rhythm, normal heart sounds. Absent: systolic murmur, diastolic murmur, rubs, gallop, clicks GI/Abdominal exam: Present: soft, tenderness (Mild epigastric tenderness upon palpation), guarding (Patient is guarding the entire left side of her abdomen), normal bowel sounds. Absent: distended, rebound, rigid Back exam: Present: normal inspection. Absent: CVA tenderness (R), CVA tenderness (L) Neurological exam: Present: alert, oriented X3 Psychiatric exam: Present: anxious (History of severe anxiety and agoraphobia. Patient is tearful.) Skin exam: Present: warm, dry, intact, normal color Course Vital Signs 06/21/21 06/21/21 06/21/21 14:48 15:07 17:24 Temperature 97.9 F Pulse Rate 117 H 101 H 81 Respiratory 20 18 18 Rate Blood Pressure 153/84 141/79 148/80 O2 Sat by Pulse 97 96 98 Oximetry 06/21/21 06/21/21 18:53 20:51 Temperature Pulse Rate 98 80 Respiratory 18 18 Rate Blood Pressure 148/80 141/80 O2 Sat by Pulse 98 97 Oximetry Medical Decision Making - Medical Decision Making 36-year-old female with a past medical history of severe anxiety, presents to the emergency department for evaluation of abdominal pain that has been going for the last 8-12 months. Upon exam, patient is tearful and anxious. Vital signs are stable. Patient is nontoxic in appearance. Abdomen is soft and nontender upon palpation. She has no additional complaints of ailment. Patient was given pain medication, nausea medicine and IV fluids with improvement. Laboratory studies were obtained and are unremarkable. CT of the abdomen and pelvis was negative for acute finding. Results were discussed with patient. She expresses relief with lack of findings and is agreeable to follow up with her PCP for further evaluation and treatment. Patient is prescribed Zofran for nausea. Return parameters were discussed with patient. She verbalizes understanding and agrees with this plan. This patient's care was discussed with my attending Dr. Aguilera. - Lab Data Result diagrams: 06/21/21 15:46 06/21/21 15:46 Lab Results 06/21/21 06/21/21 06/21/21 Range/Units 14:56 14:56 15:46 WBC 10.2 (3.8-10.6) k/uL RBC 5.30 (3.80-5.40) m/uL Hgb 15.4 (11.4-16.0) gm/dL Hct 46.3 H (34.0-46.0) % MCV 87.2 (80.0-100.0) fL MCH 28.9 (25.0-35.0) pg MCHC 33.2 (31.0-37.0) g/dL RDW 13.5 (11.5-15.5) % Plt Count 229 (150-450) k/uL MPV 7.2 Neutrophils % 56 % Lymphocytes % 29 % Monocytes % 4 % Eosinophils % 9 % Basophils % 1 % Neutrophils # 5.7 (1.3-7.7) k/uL Lymphocytes # 3.0 (1.0-4.8) k/uL Monocytes # 0.4 (0-1.0) k/uL Eosinophils # 0.9 H (0-0.7) k/uL Basophils # 0.1 (0-0.2) k/uL PT (9.0-12.0) sec INR (<1.2) APTT (22.0-30.0) sec Sodium (137-145) mmol/L Potassium (3.5-5.1) mmol/L Chloride (98-107) mmol/L Carbon Dioxide (22-30) mmol/L Anion Gap mmol/L BUN (7-17) mg/dL Creatinine (0.52-1.04) mg/dL Est GFR (CKD-EPI)AfAm (>60 ml/min/1.73 sqM) Est GFR (CKD-EPI)NonAf (>60 ml/min/1.73 sqM) Glucose (74-99) mg/dL Plasma Lactic Acid Edy (0.7-2.0) mmol/L Calcium (8.4-10.2) mg/dL Total Bilirubin (0.2-1.3) mg/dL AST (14-36) U/L ALT (4-34) U/L Alkaline Phosphatase (38-126) U/L Troponin I (0.000-0.034) ng/mL Total Protein (6.3-8.2) g/dL Albumin (3.5-5.0) g/dL Amylase (30-110) U/L Lipase (23-300) U/L Urine Color Light Yellow Urine Appearance Clear (Clear) Urine pH 6.0 (5.0-8.0) Ur Specific [place] 1.008 (1.001-1.035) Urine Protein Negative (Negative) Urine Glucose (UA) Negative (Negative) Urine Ketones Negative (Negative) Urine Blood Negative (Negative) Urine Nitrite Negative (Negative) Urine Bilirubin Negative (Negative) Urine Urobilinogen <2.0 (<2.0) mg/dL Ur Leukocyte Esterase Negative (Negative) Urine HCG, Qual Not Detected (Not Detectd) 06/21/21 06/21/21 06/21/21 Range/Units 15:46 15:46 15:46 WBC (3.8-10.6) k/uL RBC (3.80-5.40) m/uL Hgb (11.4-16.0) gm/dL Hct (34.0-46.0) % MCV (80.0-100.0) fL MCH (25.0-35.0) pg MCHC (31.0-37.0) g/dL RDW (11.5-15.5) % Plt Count (150-450) k/uL MPV Neutrophils % % Lymphocytes % % Monocytes % % Eosinophils % % Basophils % % Neutrophils # (1.3-7.7) k/uL Lymphocytes # (1.0-4.8) k/uL Monocytes # (0-1.0) k/uL Eosinophils # (0-0.7) k/uL Basophils # (0-0.2) k/uL PT 10.1 (9.0-12.0) sec INR 0.9 (<1.2) APTT 23.7 (22.0-30.0) sec Sodium 142 (137-145) mmol/L Potassium 4.0 (3.5-5.1) mmol/L Chloride 106 (98-107) mmol/L Carbon Dioxide 24 (22-30) mmol/L Anion Gap 12 mmol/L BUN 12 (7-17) mg/dL Creatinine 0.71 (0.52-1.04) mg/dL Est GFR (CKD-EPI)AfAm >90 (>60 ml/min/1.73 sqM) Est GFR (CKD-EPI)NonAf >90 (>60 ml/min/1.73 sqM) Glucose 83 (74-99) mg/dL Plasma Lactic Acid Edy 0.8 (0.7-2.0) mmol/L Calcium 10.0 (8.4-10.2) mg/dL Total Bilirubin 0.5 (0.2-1.3) mg/dL AST 24 (14-36) U/L ALT 23 (4-34) U/L Alkaline Phosphatase 68 (38-126) U/L Troponin I (0.000-0.034) ng/mL Total Protein 7.7 (6.3-8.2) g/dL Albumin 4.6 (3.5-5.0) g/dL Amylase 49 (30-110) U/L Lipase 67 (23-300) U/L Urine Color Urine Appearance (Clear) Urine pH (5.0-8.0) Ur Specific [place] (1.001-1.035) Urine Protein (Negative) Urine Glucose (UA) (Negative) Urine Ketones (Negative) Urine Blood (Negative) Urine Nitrite (Negative) Urine Bilirubin (Negative) Urine Urobilinogen (<2.0) mg/dL Ur Leukocyte Esterase (Negative) Urine HCG, Qual (Not Detectd) 06/21/21 Range/Units 15:46 WBC (3.8-10.6) k/uL RBC (3.80-5.40) m/uL Hgb (11.4-16.0) gm/dL Hct (34.0-46.0) % MCV (80.0-100.0) fL MCH (25.0-35.0) pg MCHC (31.0-37.0) g/dL RDW (11.5-15.5) % Plt Count (150-450) k/uL MPV Neutrophils % % Lymphocytes % % Monocytes % % Eosinophils % % Basophils % % Neutrophils # (1.3-7.7) k/uL Lymphocytes # (1.0-4.8) k/uL Monocytes # (0-1.0) k/uL Eosinophils # (0-0.7) k/uL Basophils # (0-0.2) k/uL PT (9.0-12.0) sec INR (<1.2) APTT (22.0-30.0) sec Sodium (137-145) mmol/L Potassium (3.5-5.1) mmol/L Chloride (98-107) mmol/L Carbon Dioxide (22-30) mmol/L Anion Gap mmol/L BUN (7-17) mg/dL Creatinine (0.52-1.04) mg/dL Est GFR (CKD-EPI)AfAm (>60 ml/min/1.73 sqM) Est GFR (CKD-EPI)NonAf (>60 ml/min/1.73 sqM) Glucose (74-99) mg/dL Plasma Lactic Acid [place] (0.7-2.0) mmol/L Calcium (8.4-10.2) mg/dL Total Bilirubin (0.2-1.3) mg/dL AST (14-36) U/L ALT (4-34) U/L Alkaline Phosphatase (38-126) U/L Troponin I <0.012 (0.000-0.034) ng/mL Total Protein (6.3-8.2) g/dL Albumin (3.5-5.0) g/dL Amylase (30-110) U/L Lipase (23-300) U/L Urine Color Urine Appearance (Clear) Urine pH (5.0-8.0) Ur Specific [place] (1.001-1.035) Urine Protein (Negative) Urine Glucose (UA) (Negative) Urine Ketones (Negative) Urine Blood (Negative) Urine Nitrite (Negative) Urine Bilirubin (Negative) Urine Urobilinogen (<2.0) mg/dL Ur Leukocyte Esterase (Negative) Urine HCG, Qual (Not Detectd) - Radiology Data Radiology results: report reviewed, image reviewed CT of the abdomen and pelvis with contrast was obtained. Report was reviewed in its entirety. Impression per Dr. Conrad is there is minimal interstitial density at the bases of the lungs bilaterally. Acute abnormality within the abdomen or pelvis. Disposition Clinical Impression: Nonspecific abdominal pain, Nausea Disposition: HOME SELF-CARE Condition: Stable Instructions (If sedation given, give patient instructions): Acute Nausea and Vomiting (ED), Acute Abdominal Pain (ED) Additional Instructions: Keep track of onset and duration of pain. Note time of day and quality of discomfort. Include dietary intake as well. Avoid spicy, irritating, and greasy foods. May take Zofran as needed for nausea. Call Dr. Beasley's office tomorrow to schedule follow-up appointment. Return to the emergency department with any new, worsening, or concerning symptoms. Prescriptions: Ondansetron Odt [Zofran Odt] 4 mg PO Q8HR PRN #10 tab PRN Reason: Nausea Is patient prescribed a controlled substance at d/c from ED?: No Referrals: Jamaal Beasley MD [Primary Care Provider] - 1-2 days Time of Disposition: 20:26
[2021-06-21 16:12] LABS: Basophils # (A) 0.1 k/uL (0-0.2); Basophils % (A) 1 %; Eosinophils # (A) 0.9 k/uL (0-0.7); Eosinophils % (A) 9 %; HCT 46.3 % (34.0-46.0); HGB 15.4 gm/dL (11.4-16.0); Lymphocytes % (A) 29 %; MCH 28.9 pg (25.0-35.0); MCHC 33.2 g/dL (31.0-37.0); MCV 87.2 fL (80.0-100.0); Mean Platelet Volume 7.2; Monocytes # (A) 0.4 k/uL (0-1.0); Monocytes % (A) 4 %; Neutrophils # (A) 5.7 k/uL (1.3-7.7); Neutrophils % (A) 56 %; Platelet Count 229 k/uL (150-450); RDW 13.5 % (11.5-15.5); WBC 10.2 k/uL (3.8-10.6)
[2021-06-21 16:15] LABS: INR 0.9 (<1.2); Partial Thromboplastin Time 23.7 sec (22.0-30.0); Prothrombin Time 10.1 sec (9.0-12.0)
[2021-06-21 16:17] LABS: ALT 23 U/L (4-34); AST 24 U/L (14-36); African American GFR (CKD) >90 (>60 ml/min/1.73 sqM); Albumin 4.6 g/dL (3.5-5.0); Alkaline Phosphatase 68 U/L (38-126); Amylase 49 U/L (30-110); Anion Gap 12 mmol/L; Blood Urea Nitrogen 12 mg/dL (7-17); Carbon Dioxide 24 mmol/L (22-30); Chloride 106 mmol/L (98-107); Glucose 83 mg/dL (74-99); Lipase 67 U/L (23-300); Non-African American GFR(CKD) >90 (>60 ml/min/1.73 sqM); Sodium 142 mmol/L (137-145); Total Bilirubin 0.5 mg/dL (0.2-1.3); Total Protein 7.7 g/dL (6.3-8.2)
[2021-06-21] MEDS ORDERED: diphenhydrAMINE 50 MG/ML 1 ML VIAL IVP STA (17:56)
[2021-06-21] MEDS ORDERED: methylPREDNISolone SOD SUCCI 125 MG/2 ML VIAL IV STA (17:56)
[2021-06-21] MEDS ORDERED: FAMOTIDINE 20 MG/2 ML VIAL IV STA (17:56)
[2021-06-21] MEDS ORDERED: LORazepam 1 MG TAB PO STA (18:42)
--- NOTE | 2021-06-21 19:55 | CT ---
EXAMINATION TYPE: CT abdomen pelvis w con DATE OF EXAM: 06/21/2021 COMPARISON: None HISTORY: LT side abdominal pain CT DLP: 2484.1 mGycm Automated exposure control for dose reduction was used. CONTRAST: Performed with IV Contrast, patient injected with 100 mL of Isovue 300. Images obtained from the diaphragm to the floor the pelvis with IV contrast. Lung bases are clear of consolidation. There is no pleural effusion. There is mild interstitial densi ty at the lung bases. Heart size is normal. There is no pericardial effusion. Liver spleen stomach pancreas appear normal. The bile ducts are not dilated. There are clips from cho lecystectomy. There is no adrenal mass. Kidneys show satisfactory contrast opacification. There is no hydronephrosi s. Ureters are not dilated. Delayed images show normal renal excretion. There is no retroperitoneal a denopathy. Bladder distends smoothly. There is no inguinal hernia. Uterus is anteverted. There is no free fluid in the pelvis. Appendix not clearly seen. No significant appendix. Uterus is anteverted. There is no evidence of a p elvic mass. The lumbar vertebrae have normal alignment. Posterior elements are intact. There is no compression fr acture. Bony pelvis is intact. The hip joints are intact. IMPRESSION: There is some minimal interstitial density at the lung bases bilaterally. No acute abnormality within the abdomen and pelvis.
[2021-06-21] MEDS ORDERED: ONDANSETRON 4 MG ODT STARTER PACK 2 TAB BTL PO STA (20:21)
[2021-06-21 20:54] VITALS: BP 141/80; PULSE 80
== END 2021-06-21 20:54 | disposition home or self-care (01) ==
LOC: EC 14:46
DX: R10.12 Left upper quadrant pain (principal); R11.2 Nausea with vomiting, unspecified; J45.909 Unspecified asthma, uncomplicated; F41.9 Anxiety disorder, unspecified; F25.9 Schizoaffective disorder, unspecified; F17.200 Nicotine dependence, unspecified, uncomplicated; F12.90 Cannabis use, unspecified, uncomplicated; Z79.1 Long term (current) use of non-steroidal anti-inflammatories (NSAID); Z79.899 Other long term (current) drug therapy
CPT/HCPCS: 36415; 80053; 82150; 83605; 83690; 84484; 85025; 85610; 85730; 81003; 81025; 74177; 99284; 96374; 96375 ×5; J1200; J2930; J2405; S0119; J1170; Q9967

== ENCOUNTER 2021-08-29 13:14 | Emergency (ER) | payer OTHER ==
[2021-08-29 13:18] VITALS: BP 135/101; PULSE 103; RESP 18; TEMP 97.7
[2021-08-29] MEDS ORDERED: CLINDAMYCIN 150 MG CAP PO STA (13:50)
[2021-08-29] MEDS ORDERED: KETOROLAC 15 MG/ML 1 ML VIAL IM STA (13:56)
--- NOTE | 2021-08-29 13:58 | ED ---
ENT HPI - General Chief complaint: Dental/Oral Stated complaint: Dental Pain Time Seen by Provider: 08/29/21 13:31 Source: patient Mode of arrival: ambulatory Limitations: no limitations - History of Present Illness Initial comments: Patient is a 36-year-old female who presents to the emergency department with a chief complaint of tooth pain. Patient states she broke her tooth years ago and occasionally experiences tooth pain that will pass on its own with [id number] pain medication. Patient states that she has experienced severe tooth pain for 5 days. She states that she takes hydrocodone for brittle bone disease which has not helped her tooth pain. Patient has concern for infection. She has a dentist appointment next week. She denies swelling of the gums, throat, and neck. Patient denies shortness of breath or difficulty breathing. Patient has no other concerns at this time including fever, chills, headache, cough, chest pain, abdominal pain, nausea, and vomiting. - Related Data Home Medications Medication Instructions Recorded Confirmed ALPRAZolam [Xanax] 0.25 mg PO BID PRN 04/25/20 04/25/20 FLUoxetine HCL 40 mg PO DAILY 04/25/20 04/25/20 HYDROcodone/APAP 7.5-325MG [[place] 1 tab PO QID PRN 04/25/20 04/25/20 7.5-325] Ibuprofen [Motrin Ib] 200 mg PO Q6H PRN 04/25/20 04/25/20 Norgestimate-Ethinyl Estradiol 1 tab PO HS 04/25/20 04/25/20 [Sprintec 28 Day Tablet] Previous Rx's Medication Instructions Recorded Doxycycline [Vibramycin] 100 mg PO BID 10 Days #20 capsule 04/27/20 Ondansetron Odt [Zofran Odt] 4 mg PO Q8HR PRN #10 tab 06/21/21 Clindamycin [Cleocin] 450 mg PO Q8H 10 Days #30 cap 08/29/21 Ketorolac [Toradol] 10 mg PO Q8HR #15 tab 08/29/21 Allergies Allergy/AdvReac Type Severity Reaction Status Date / Time Penicillins Allergy Unknown Verified 08/29/21 13:18 Childhood Sulfa (Sulfonamide Allergy Unknown Verified 08/29/21 13:18 Antibiotics) Childhood Review of Systems ROS Statement: Those systems with pertinent positive or pertinent negative responses have been documented in the HPI. ROS Other: All systems not noted in ROS Statement are negative. Past Medical History Past Medical History: Asthma Additional Past Medical History / Comment(s): pancreatitis, borderline personality disorder. History of Any Multi-Drug Resistant Organisms: None Reported Past Surgical History: Section, Cholecystectomy Additional Past Surgical History / Comment(s): pancreatitis Past Anesthesia/Blood Transfusion Reactions: No Reported Reaction Past Psychological History: Anxiety, PTSD, Schizoaffective Disorder Smoking Status: Current every day smoker Past Alcohol Use History: None Reported Past Drug Use History: Marijuana General Exam Limitations: no limitations General appearance: alert, in no apparent distress Head exam: Present: atraumatic, normocephalic, normal inspection Eye exam: Present: normal appearance, PERRL, EOMI. Absent: scleral icterus, conjunctival injection, periorbital swelling ENT exam: Present: other (Broken decayed tooth #19, no surrounding erythema or swelling of the gums or floor of the mouth) Neck exam: Present: normal inspection, full ROM, other. Absent: lymphadenopathy (No erythema, swelling, or tenderness of the neck) Respiratory exam: Present: normal lung sounds bilaterally. Absent: respiratory distress, wheezes, rales, rhonchi, stridor Cardiovascular Exam: Present: regular rate, normal rhythm, normal heart sounds. Absent: systolic murmur, diastolic murmur, rubs, gallop, clicks GI/Abdominal exam: Present: soft, normal bowel sounds. Absent: distended, tenderness, guarding, rebound, rigid Neurological exam: Present: alert, oriented X3, CN II-XII intact Psychiatric exam: Present: normal affect, normal mood Skin exam: Present: warm, dry, intact, normal color. Absent: rash Course Vital Signs 08/29/21 13:16 Temperature 97.7 F Pulse Rate 103 H Respiratory 18 Rate Blood Pressure 135/101 O2 Sat by Pulse 98 Oximetry Medical Decision Making - Medical Decision Making This is a 36-year-old female who presents with tooth pain 5 days. Thorough history and examination were performed. Tooth #19 is broken and decayed with no surrounding erythema, swelling, or tenderness of the gums or floor of the mouth. The neck is normal on inspection with no erythema, swelling, or lymphadenopathy. There is no neck tenderness. Patient prescribed clindamycin due to penicillin allergy. She is instructed take the clindamycin as directed. I also prescribed her Toradol for pain. Patient instructed to follow up at her previously scheduled dentist appointment. Return parameters discussed. Patient verbalizes understanding and is agree able to plan. Dr. Molina is my attending. Disposition Clinical Impression: Pain, dental Disposition: HOME SELF-CARE Condition: Good Instructions (If sedation given, give patient instructions): Toothache (ED) Additional Instructions: Please take medication as directed. Please follow-up at your previously scheduled dentist appointment next week. Return to the emergency department if you experience new, concerning, or worsening symptoms. Prescriptions: Clindamycin [Cleocin] 450 mg PO Q8H 10 Days #30 cap Ketorolac [Toradol] 10 mg PO Q8HR #15 tab Is patient prescribed a controlled substance at d/c from ED?: No Referrals: Jamaal Beasley MD [Primary Care Provider] - 1-2 days Time of Disposition: 13:58
== END 2021-08-29 14:30 | disposition home or self-care (01) ==
LOC: EC 13:14
DX: K02.9 Dental caries, unspecified (principal); J45.909 Unspecified asthma, uncomplicated; F41.9 Anxiety disorder, unspecified; F25.9 Schizoaffective disorder, unspecified; F17.200 Nicotine dependence, unspecified, uncomplicated; F12.90 Cannabis use, unspecified, uncomplicated; Z79.899 Other long term (current) drug therapy; Z88.0 Allergy status to penicillin; Z88.2 Allergy status to sulfonamides
CPT/HCPCS: 99282; 96372; J1885

== ENCOUNTER 2022-06-17 10:01 | Emergency (ER) | payer OTHER ==
[2022-06-17 10:07] VITALS: TEMP 98
[2022-06-17] MEDS ORDERED: ONDANSETRON 4 MG/2 ML VIAL IVP STA (10:27)
[2022-06-17] MEDS ORDERED: SODIUM CHLORIDE 0.9% 1,000 ML IV STA (10:27)
[2022-06-17] MEDS ORDERED: KETOROLAC 15 MG/ML 1 ML VIAL IVP STA (10:28)
--- NOTE | 2022-06-17 10:30 | ED ---
General Adult HPI - General Chief complaint: Vaginal Bleeding Stated complaint: Nausea vomiting abdominal pain Time Seen by Provider: 06/17/22 10:15 Source: patient, RN notes reviewed, old records reviewed Mode of arrival: ambulatory Limitations: no limitations - History of Present Illness Initial comments: 37-year-old female presents emergency room states that she woke up with nausea vomiting and lower abdominal pain since 2 AM. Denies any fevers. He has a history of 5 C-sections, pancreatitis cholecystectomy and tubal ligation. -: hour(s) (8) Location: abdomen (lower), pelvis Severity scale (1-10): 10 Quality: constant Consistency: constant Associated Symptoms: nausea/vomiting Treatments Prior to Arrival: none - Related Data Home Medications Medication Instructions Recorded Confirmed ALPRAZolam [Xanax] 0.25 mg PO BID PRN 04/25/20 04/25/20 FLUoxetine HCL 40 mg PO DAILY 04/25/20 04/25/20 HYDROcodone/APAP 7.5-325MG [[place] 1 tab PO QID PRN 04/25/20 04/25/20 7.5-325] Ibuprofen [Motrin Ib] 200 mg PO Q6H PRN 04/25/20 04/25/20 norgestimate-ethinyl estradioL 1 tab PO HS 04/25/20 04/25/20 [Sprintec 28 Day Tablet] Previous Rx's Medication Instructions Recorded Doxycycline [Vibramycin] 100 mg PO BID 10 Days #20 capsule 04/27/20 Ondansetron Odt [Zofran Odt] 4 mg PO Q8HR PRN #10 tab 06/21/21 Clindamycin [Cleocin] 450 mg PO Q8H 10 Days #30 cap 08/29/21 Ketorolac [Toradol] 10 mg PO Q8HR #15 tab 08/29/21 Cephalexin [Keflex] 500 mg PO BID 7 Days #14 cap 06/17/22 Allergies Allergy/AdvReac Type Severity Reaction Status Date / Time Penicillins Allergy Unknown Verified 08/29/21 13:18 Childhood Sulfa (Sulfonamide Allergy Unknown Verified 08/29/21 13:18 Antibiotics) Childhood Review of Systems ROS Statement: Those systems with pertinent positive or pertinent negative responses have been documented in the HPI. ROS Other: All systems not noted in ROS Statement are negative. Past Medical History Past Medical History: Asthma Additional Past Medical History / Comment(s): pancreatitis, borderline personality disorder. History of Any Multi-Drug Resistant Organisms: None Reported Past Surgical History: Section, Cholecystectomy, Tubal Ligation Additional Past Surgical History / Comment(s): pancreatitis Past Anesthesia/Blood Transfusion Reactions: No Reported Reaction Past Psychological History: Anxiety, PTSD, Schizoaffective Disorder Smoking Status: Current every day smoker Past Alcohol Use History: None Reported Past Drug Use History: Marijuana General Exam Limitations: no limitations General appearance: alert, in no apparent distress Head exam: Present: atraumatic Eye exam: Present: normal appearance. Absent: scleral icterus, conjunctival injection, periorbital swelling ENT exam: Present: mucous membranes moist Neck exam: Absent: tenderness, meningismus Respiratory exam: Present: normal lung sounds bilaterally. Absent: respiratory distress, accessory muscle use Cardiovascular Exam: Present: regular rate GI/Abdominal exam: Present: soft, tenderness (superpubic) Extremities exam: Present: normal capillary refill. Absent: pedal edema Back exam: Present: normal inspection, full ROM. Absent: tenderness, CVA tenderness (R), CVA tenderness (L), rash noted Neurological exam: Present: alert, oriented X3 Psychiatric exam: Present: normal affect, normal mood Skin exam: Present: warm, normal color, diaphoretic. Absent: cyanosis, petechiae, pallor Course Vital Signs 06/17/22 06/17/22 10:02 13:27 Temperature 98 F Pulse Rate 66 68 Respiratory 20 18 Rate Blood Pressure 148/81 159/68 O2 Sat by Pulse 98 99 Oximetry - Reevaluation(s) Reevaluation #1: 06/17/22 11:40 Patient sitting in chair side of bed complaining of continued nausea. Denies any chest pain or shortness of breath. She was given droperidol and will reassess. Time: 11:40 Medical Decision Making - Medical Decision Making Vital signs are stable, she has been afebrile Labs show no evidence of leukocytosis hemoglobin stable, electrolytes are un remarkable. Urinalysis shows UTI. Influenza coronavirus swabs are negative EKG performed due to vomiting and diaphoresis and multiple doses of antiemetics. Shows sinus bradycardia rate of 54. Normal axis. NV interval 0.128, QRS 0.90, QTC 0.4-2 nonspecific T-wave inversions in V4, no significant change compared to old Patient was given Zofran, Toradol and droperidol and IV fluids. She was feeling better. Given Rocephin for UTI. Discharged home with a Zofran take home pack and a prescription for Keflex. I directed the patient to increase her fluid intake and follow up with her primary care doctor for reevaluation. She is agreeable to this plan of care. Case discussed with Dr. Fried Was pt. sent in by a medical professional or institution? @ -no Did you speak to anyone other than the patient for history? @ -no Did you review nursing and triage notes? @ -yes Were old charts reviewed? @ -yes old ekg Differential Diagnosis? @ -Differential Abdominal Pain Women: Appendicitis, diverticulosis, ischemic bowel, pancreatitis, hepatitis, UTI, gastroenteritis, hepatitis, peptic ulcer disease, vulvitis, ovarian torsion, PID, kidney stone, this is not meant to be an all-inclusive list EKG interpreted by me (3pts min.)? @ -yes as above What testing was considered but not performed? (CT, X-rays, U/S, labs)? Why? @CT was considered however patient's symptoms resolved after IV fluids and antiemetics. She was found to have a urinary tract suprapubic pain. UA negative for . What meds were considered but not given? Why? @ -none Did you discuss the management of the patient with other professionals? @ -no Did you reconcile home meds? @ -no Was smoking cessation discussed for >3mins.? @ -no Was critical care preformed (if so, how long)? @ -no Were there social determinants of health that impacted care today? How? (Homelessness, low income, unemployed, alcoholism, drug addiction, transport ation, low edu. Level, literacy, decrease access to med. care, [facility], rehab)? @ -none Was there de-escalation of care discussed even if they declined? (Discuss DNR or withdrawal of care, Hospice)? @ -no What co-morbidities impacted this encounter? (DM, HTN, Smoking, COPD, CAD, Cancer, CVA, Hep., AIDS, mental health diagnosis, sleep apnea, morbid obesity)? @ -History of pancreatitis cholecystectomy Was patient admitted / discharged? @ -Discharged Undiagnosed new problem with uncertain prognosis? @ -no Drug Therapy requiring intensive monitoring for toxicity (Heparin, Nitro, Insulin, Cardizem)? @ -no Were any procedures done? @ -no Diagnosis/symptom? @ -uti Acute, or Chronic, or Acute on Chronic? @ -acute Uncomplicated (without systemic symptoms) or Complicated (systemic symptoms)? @ -[default] Side effects of treatment? @ -none Exacerbation, Progression, or Severe Exacerbation] @ -[no] Poses a threat to life or bodily function? @ -[no] - Lab Data Result diagrams: 06/17/22 10:35 06/17/22 10:35 Lab Results 06/17/22 06/17/22 06/17/22 Range/Units 10:35 10:35 10:45 WBC 8.9 (3.8-10.6) k/uL RBC 5.17 (3.80-5.40) m/uL Hgb 14.9 (11.4-16.0) gm/dL Hct 44.5 (34.0-46.0) % MCV 86.1 (80.0-100.0) fL MCH 28.9 (25.0-35.0) pg MCHC 33.6 (31.0-37.0) g/dL RDW 13.4 (11.5-15.5) % Plt Count 181 (150-450) k/uL MPV 10.5 Neutrophils % 54 % Lymphocytes % 32 % Monocytes % 5 % Eosinophils % 6 % Basophils % 1 % Neutrophils # 4.8 (1.3-7.7) k/uL Lymphocytes # 2.9 (1.0-4.8) k/uL Monocytes # 0.5 (0-1.0) k/uL Eosinophils # 0.5 (0-0.7) k/uL Basophils # 0.1 (0-0.2) k/uL Sodium 137 (137-145) mmol/L Potassium 4.1 (3.5-5.1) mmol/L Chloride 106 (98-107) mmol/L Carbon Dioxide 23 (22-30) mmol/L Anion Gap 8 mmol/L BUN 15 (7-17) mg/dL Creatinine 0.88 (0.52-1.04) mg/dL Est GFR (CKD-EPI)AfAm >90 (>60 ml/min/1.73 sqM) Est GFR (CKD-EPI)NonAf 84 (>60 ml/min/1.73 sqM) Glucose 113 H (74-99) mg/dL Calcium 9.5 (8.4-10.2) mg/dL Total Bilirubin 0.5 (0.2-1.3) mg/dL AST 27 (14-36) U/L ALT 28 (4-34) U/L Alkaline Phosphatase 78 (38-126) U/L Total Protein 7.4 (6.3-8.2) g/dL Albumin 4.5 (3.5-5.0) g/dL Amylase 51 (30-110) U/L Lipase 172 (23-300) U/L Urine Color Urine Appearance (Clear) Urine pH (5.0-8.0) Ur Specific [place] (1.001-1.035) Urine Protein (Negative) Urine Glucose (UA) (Negative) Urine Ketones (Negative) Urine Blood (Negative) Urine Nitrite (Negative) Urine Bilirubin (Negative) Urine Urobilinogen (<2.0) mg/dL Ur Leukocyte Esterase (Negative) Urine RBC (0-5) /hpf Urine WBC (0-5) /hpf Ur Squamous Epith Cells (0-4) /hpf Urine Bacteria (None) /hpf Urine Mucus (None) /hpf Urine HCG, Qual (Not Detectd) Influenza Type A (PCR) Not Detected (Not Detectd) Influenza Type B (PCR) Not Detected (Not Detectd) RSV (PCR) Not Detected (Not Detectd) SARS-CoV-2 (PCR) Not Detected (Not Detectd) 06/17/22 06/17/22 Range/Units 11:15 11:15 WBC (3.8-10.6) k/uL RBC (3.80-5.40) m/uL Hgb (11.4-16.0) gm/dL Hct (34.0-46.0) % MCV (80.0-100.0) fL MCH (25.0-35.0) pg MCHC (31.0-37.0) g/dL RDW (11.5-15.5) % Plt Count (150-450) k/uL MPV Neutrophils % % Lymphocytes % % Monocytes % % Eosinophils % % Basophils % % Neutrophils # (1.3-7.7) k/uL Lymphocytes # (1.0-4.8) k/uL Monocytes # (0-1.0) k/uL Eosinophils # (0-0.7) k/uL Basophils # (0-0.2) k/uL Sodium (137-145) mmol/L Potassium (3.5-5.1) mmol/L Chloride (98-107) mmol/L Carbon Dioxide (22-30) mmol/L Anion Gap mmol/L BUN (7-17) mg/dL Creatinine (0.52-1.04) mg/dL Est GFR (CKD-EPI)AfAm (>60 ml/min/1.73 sqM) Est GFR (CKD-EPI)NonAf (>60 ml/min/1.73 sqM) Glucose (74-99) mg/dL Calcium (8.4-10.2) mg/dL Total Bilirubin (0.2-1.3) mg/dL AST (14-36) U/L ALT (4-34) U/L Alkaline Phosphatase (38-126) U/L Total Protein (6.3-8.2) g/dL Albumin (3.5-5.0) g/dL Amylase (30-110) U/L Lipase (23-300) U/L Urine Color Yellow Urine Appearance Cloudy H (Clear) Urine pH 8.0 (5.0-8.0) Ur Specific [place] 1.019 (1.001-1.035) Urine Protein Trace H (Negative) Urine Glucose (UA) Negative (Negative) Urine Ketones 1+ H (Negative) Urine Blood Large H (Negative) Urine Nitrite Negative (Negative) Urine Bilirubin Negative (Negative) Urine Urobilinogen <2.0 (<2.0) mg/dL Ur Leukocyte Esterase Moderate H (Negative) Urine RBC 26 H (0-5) /hpf Urine WBC 10 H (0-5) /hpf Ur Squamous Epith Cells 4 (0-4) /hpf Urine Bacteria Rare H (None) /hpf Urine Mucus Rare H (None) /hpf Urine HCG, Qual Not Detected (Not Detectd) Influenza Type A (PCR) (Not Detectd) Influenza Type B (PCR) (Not Detectd) RSV (PCR) (Not Detectd) SARS-CoV-2 (PCR) (Not Detectd) Disposition Clinical Impression: UTI (urinary tract infection) Disposition: HOME SELF-CARE Condition: Good Instructions (If sedation given, give patient instructions): Urinary Tract Infection in Women (ED) Additional Instructions: Increase your fluid intake. Take the antibiotics as prescribed. Follow-up with your primary care doctor next week for reevaluation. Return to the emergency room with any new or concerning symptoms. Prescriptions: Cephalexin [Keflex] 500 mg PO BID 7 Days #14 cap Is patient prescribed a controlled substance at d/c from ED?: No Referrals: Jamaal Beasley MD [REFERRING] - 1-2 days Time of Disposition: 12:31
[2022-06-17 10:52] LABS: Basophils # (A) 0.1 k/uL (0-0.2); Basophils % (A) 1 %; Eosinophils # (A) 0.5 k/uL (0-0.7); Eosinophils % (A) 6 %; HCT 44.5 % (34.0-46.0); HGB 14.9 gm/dL (11.4-16.0); Lymphocytes # (A) 2.9 k/uL (1.0-4.8); Lymphocytes % (A) 32 %; MCH 28.9 pg (25.0-35.0); MCHC 33.6 g/dL (31.0-37.0); MCV 86.1 fL (80.0-100.0); Mean Platelet Volume 10.5; Monocytes # (A) 0.5 k/uL (0-1.0); Monocytes % (A) 5 %; Neutrophils # (A) 4.8 k/uL (1.3-7.7); Neutrophils % (A) 54 %; Platelet Count 181 k/uL (150-450); RBC 5.17 m/uL (3.80-5.40); RDW 13.4 % (11.5-15.5); WBC 8.9 k/uL (3.8-10.6)
[2022-06-17 11:11] LABS: ALT 28 U/L (4-34); AST 27 U/L (14-36); African American GFR (CKD) >90 (>60 ml/min/1.73 sqM); Albumin 4.5 g/dL (3.5-5.0); Alkaline Phosphatase 78 U/L (38-126); Amylase 51 U/L (30-110); Anion Gap 8 mmol/L; Blood Urea Nitrogen 15 mg/dL (7-17); Calcium 9.5 mg/dL (8.4-10.2); Carbon Dioxide 23 mmol/L (22-30); Chloride 106 mmol/L (98-107); Glucose 113 mg/dL (74-99); Lipase 172 U/L (23-300); Non-African American GFR(CKD) 84 (>60 ml/min/1.73 sqM); Potassium 4.1 mmol/L (3.5-5.1); Sodium 137 mmol/L (137-145); Total Bilirubin 0.5 mg/dL (0.2-1.3); Total Protein 7.4 g/dL (6.3-8.2)
[2022-06-17 11:27] LABS: Appearance,Urine Cloudy (Clear); Bacteria,Urine Rare /hpf; Bilirubin,Urine Negative (Negative); Blood,Urine Large (Negative); Color,Urine Yellow; Glucose,Urine (UA) Negative (Negative); Ketones,Urine 1+ (Negative); Leukocyte Esterase,Urine Moderate (Negative); Mucus,Urine Rare /hpf; Nitrite,Urine Negative (Negative); Protein,Urine Trace (Negative); RBC,Urine 26 /hpf (0-5); Specific Gravity,Urine 1.019 (1.001-1.035); Squamous Epithelial Cell,Urine 4 /hpf (0-4); Urobilinogen,Urine <2.0 mg/dL (<2.0); WBC,Urine 10 /hpf (0-5)
[2022-06-17] MEDS ORDERED: cefTRIAXone IN SWFI 1,000 MG/10 ML SYRINGE IVP STA (12:05)
[2022-06-17] MEDS ORDERED: ONDANSETRON 4 MG ODT STARTER PACK 2 TAB BTL PO STA (12:31)
[2022-06-17 13:29] VITALS: BP 159/68; PULSE 68; RESP 18
== END 2022-06-17 13:28 | disposition home or self-care (01) ==
LOC: EC 10:01
DX: N39.0 Urinary tract infection, site not specified (principal); J45.909 Unspecified asthma, uncomplicated; F41.9 Anxiety disorder, unspecified; F17.200 Nicotine dependence, unspecified, uncomplicated; F12.90 Cannabis use, unspecified, uncomplicated; Z88.0 Allergy status to penicillin; Z88.2 Allergy status to sulfonamides; Z79.899 Other long term (current) drug therapy; Z20.822 Contact with and (suspected) exposure to COVID-19
CPT/HCPCS: 36415; 93005; 80053; 82150; 83690; 85025; 81001; 81025; 87636; 99284; 96374; 96375 ×3; 96361; J2405; J0696; J1885; S0119; J1790